=== PATIENT | female | born 1985 | race Caucasian/White ===

== ENCOUNTER 2018-04-26 22:01 | Inpatient (IN) | payer OTHER ==
[2018-04-26 23:32] LABS: PLATELET COUNT 269 10^3/uL (150-400)
[2018-04-27] MEDS ORDERED: fentaNYL 100 MCG/2 ML INJ ONE ×3 (00:09→07:19)
[2018-04-27] MEDS ORDERED: MISOPROSTOL 200 MCG TAB PR PRN (00:14)
[2018-04-27] MEDS ORDERED: LIDOCAINE 1% 300 MG/30 ML SDV SC PRN (00:14)
[2018-04-27] MEDS ORDERED: IBUPROFEN 600 MG TAB PO PRN (00:14)
[2018-04-27] MEDS ORDERED: LR 1,000 ML IV PRN (00:14)
[2018-04-27] MEDS ORDERED: OXYTOCIN/RINGERS LACTATE 1,000 ML IV PRN (00:14)
[2018-04-27] MEDS ORDERED: EPSOM SALT 454 GM TP PRN (00:14)
[2018-04-27] MEDS ORDERED: OLIVE OIL 118 ML BTL MISC PRN (00:14)
[2018-04-27] MEDS ORDERED: fentaNYL 100 MCG/2 ML INJ IVP ONE (00:15)
--- NOTE | 2018-04-27 00:59 | GHP ---
[f rep st] PREOP HISTORY AND PHYSICAL DATE OF ADMISSION: 04/26/2018 HISTORY UPON PRESENTATION: The patient is a 32-year-old, G1, P0, at 39+ weeks' gestation with an est imated due date of 04/29, who presents with spontaneous onset of labor with contractions throughout t he day on 04/26 and increasing in intensity and frequency after 8 p.m. upon arrival at approximately 10 p.m., the patient's cervix was checked and it was minimally changed from the office visit on 04/11 5. Cervix was 2 cm dilated at 80% effaced. The patient is actively abigail with increasing inte nsity with contractions every 2-3 minutes. Recent cervical exam has shown the patient has now dilate d to 4 cm at 100% effaced and 0 station. The patient is now being admitted for management of labor. The patient also has signs on admission concerning for preeclampsia without severe features. The pa milagros's blood pressures have consistently been running in the high 130s to 140s over 80s to 90s. The patient had PIH labs drawn which show normal platelets, liver functions and creatinine. However, P to C ratio is 0.68. The patient reports headache throughout the day on 04/26 and is currently having nausea at the time of contractions. The patient reports right rib pain. However, this has been con sistent through the end of where the baby is constantly putting pressure. COURSE: The patient has been followed with [facility] since 8 weeks gestation. T he patient had an early 1st trimester ultrasound that established a due date of 04/29. It showed siz e less than dates expected by last menstrual period by greater than 7 days. 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 The patient had an initial ultrasound at 20 weeks showing normal anatomy with an estim ated weight of 77th percentile. The patient was measuring size greater than dates at 27 weeks and a followup ultrasound was performed that showed estimated weight now at the 90th percentile with the BPD greater than 98th percentile. Also at that time the LUIS showed polyhydramnios at a level of 29 cm. A followup ultrasound was done and the LUIS decreased to 17 cm, and the growth now at 80th per centile. The patient has been bothered by increased snoring and symptoms consist consistent with sle ep apnea, but was unable to get an appointment at a sleep institute and has not been formally diagnos ed. The patient also broke her foot in the 35th week and has been wearing a boot. 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 LABS: Include maternal blood type A positive with negative antibody screen. RPR nonreactiv e. Rubella immune. Hepatitis B surface antigen negative. HIV negative. The standard panel was all negative other than the Gaucher's disease trait. The patient negative for cystic fibrosis, SMA, fra gile X. Urine drug screen was negative. Urinalysis and culture were negative. Verifi testing was n ormal and MSAFP was negative. 1-hour Glucola was normal, and hematocrit and platelets were normal at 28 weeks. GBS culture is negative. Varicella testing was immune. PAST MEDICAL HISTORY: The patient was evaluated at the age of 18 and had an elevated ABIMAEL, but furthe r workup was negative. PAST SURGICAL HISTORY: Only odontectomy. ALLERGIES: The patient has no known drug allergies. CURRENT MEDICATIONS: Only vitamins. SOCIAL HISTORY: The patient is a nonsmoker. No alcohol or drug use, but reports marijuana use in [facility]. The patient lives with her and works as an oncology nurse. FAMILY HISTORY: Noncontributory. PHYSICAL EXAMINATION: GENERAL APPEARANCE: Upon admission, the patient is a well-developed, well-nou rished white female in distress with contractions and having concentrated back pain. VITAL SIGNS: B lood pressures ranging from the 130s to 150s over 80s to low 100s. The patient is afebrile. See [facility] documentation for full details. LUNGS: Clear to auscultation bilaterally. CARDIOVASCULAR: Re gular rate and rhythm. Abdomen is gravid. heart tones show a category 1 reactive pattern with a baseline in the 130s with good accelerations and good variability. Contractions every 2 minutes. PELVIC: Exam as noted above. 4 cm dilated, 100% effaced at 0 station. Bag of water intact. EXTRE MITIES: Nontender and no edema. LABORATORY DATA: [place] [address], hemoglobin and hematocrit 13 and 40, platel et count 269,000. PIH labs reveal normal liver function tests. Creatinine 0.7, and P to C ratio of 0.68. ASSESSMENT: Intrauterine at 39+ weeks, in early active labor. The patient requesting pain relief, but not wanting an epidural at this time. Nitrous currently not available due to hospital e quipment supply. The patient is given IV fentanyl and will try to manage contractions in the tub. T he patient currently with elevated blood pressures and elevated P to C ratio diagnosing her with pree clampsia without severe features. We will continue close observation. GBS culture is negative. PLAN: Will expect progress and anticipate vaginal delivery. Will watch closely for severe signs wit h preeclampsia. Epidural if the patient desires. /[id number]/MODL
[2018-04-27] MEDS ORDERED: AMMONIA AROMATIC 1 EACH AMP IH ONE (01:16)
[2018-04-27] MEDS ORDERED: TERBUTALINE SULFATE 1 MG/ML VIAL ONE (01:16)
[2018-04-27] MEDS ORDERED: OLIVE OIL 118 ML BTL MISC ONE (01:16)
[2018-04-27] MEDS ORDERED: LIDOCAINE 1% 300 MG/30 ML SDV ONE (01:16)
[2018-04-27] MEDS ORDERED: MISOPROSTOL 200 MCG TAB ONE (01:17)
[2018-04-27] MEDS ORDERED: OXYTOCIN 10 UNIT/ML VIAL ONE (01:17)
[2018-04-27] MEDS ORDERED: BUPIVACAINE 0.25% 10 ML SDV ONE ×3 (02:53→07:18)
[2018-04-27] MEDS ORDERED: PHENYLEPHRINE HCL 100 MCG/ML SYR ONE (02:54)
[2018-04-27] MEDS ORDERED: fentaNYL 200 MCG, BUPIVACAINE 0.5% 20 ML in NS 100 ML EP SCH (03:00)
--- NOTE | 2018-04-27 03:31 | PDANEPAE ---
ANE History of Present Illness Labor for epidural, term ANE Past Medical History - Cardiovascular History Hx Hypertension: No Hx Arrhythmias: No - Pulmonary History Hx Asthma/Reactive Airway Disease: No Hx Sleep Apnea: No - Endocrine History Hx Diabetes: No - Chronic Pain History Chronic Pain: No ANE Review of Systems Review of Systems: ANE Patient History - Allergies Allergies/Adverse Reactions: No Known Allergies Allergy (Unverified 04/26/18 22:52) - Anes Hx Anes Hx: no prior problems (No prior RA) - Smoking Hx Smoking Status: Never smoked ANE Labs/Vital Signs - Labs Result Diagrams: 04/26/18 23:00 04/26/18 23:00 - Vital Signs Height: 165.1 cm Weight: 92.079 kg ANE Physical Exam - Airway Neck exam: FROM Mallampati Score: Class 2 Mouth exam: normal dental/mouth exam - Pulmonary Pulmonary: no respiratory distress - Cardiovascular Cardiovascular: regular rate and rhythym - ASA Status ASA Status: II ANE Anesthesia Plan Anesthesia Plan: epidural
[2018-04-27] MEDS ORDERED: fentaNYL 2MCG/ML/BUP 0.1% RTU 100 ML EP SCH (04:00)
[2018-04-27] MEDS ORDERED: LR 500 ML IV SCH (04:00)
[2018-04-27] MEDS ORDERED: LR 500 ML IV PRN ×2 (05:07→11:21)
--- NOTE | 2018-04-27 05:20 | OBPROG ---
Labor Progress Note Assessment/Plan: Assessment: IUP at 39 wks SOOC, active labor GBS - Plan: EDGARD approx 3 am, some lates with positioning and lower b/p, cx now 7/100/0 04/27/18 05:16 Subjective/Intrapartum Course: 04/27/18 05:17 pt sleeping soundly with EDGARD - comfortable Objective: 04/26/18 23:00 04/26/18 23:00 Patient ABO/Rh A POSITIVE 04/27/18 00:20 Uric Acid 6.6 mg/dL (2.5-6.8) 04/26/18 23:00 Total Bilirubin 0.2 mg/dL (0.1-1.4) 04/26/18 23:00 Conjugated Bilirubin 0.2 mg/dL (0.0-0.5) 04/26/18 23:00 Unconjugated Bilirubin 0.0 mg/dL (0.0-1.1) 04/26/18 23:00 AST 26 IU/L (14-46) 04/26/18 23:00 ALT 34 IU/L (9-52) 04/26/18 23:00 Lactate Dehydrogenase 523 IU/L (313-618) 04/26/18 23:00 - SVE Dilation (cm): 7 Effacement (%): 100 Station: 0 Membranes: Intact - Contraction Pattern Assessment Current Contraction Pattern: Irregular (harder to assess - q 4-6 min) - FHR Assessment Lopez FHR (bpm): 140 FHR Pattern Variability: Moderate FHR Category: 2 (since EDGARD occas lates with positioning and lower b/p) Oxytocin Orders Assessment - Pre-Induction/Augmentation Assessment Gestational Age: 39 week(s) and 4 day(s) ICD10 Worksheet Patient Problems: Problems Problem Status Onset Normal labor Acute Pre-eclampsia, mild Acute
[2018-04-27] MEDS ORDERED: OXYTOCIN/RINGERS LACTATE 500 ML IV SCH ×2 (05:30→11:30)
[2018-04-27] MEDS ORDERED: FAMOTIDINE 20 MG/NACL 50 ML IV ONE (08:07)
--- NOTE | 2018-04-27 09:03 | OBPROG ---
Labor Progress Note Assessment/Plan: Assumed care from Dr. Fields at 0700. Assessment: 32 G1 at 39w5d, in active labor. Now s/p epidural replacement - effective now. Stalled with regards to cervical dilation after epidural. Plan: AROM performed, meconium noted. MIXER ATTENDANT will be notified to attend . If no cervical change at next check, will augment with pitocin. Reviewed wishes and expectations around time of . Danelle Abraham MD, FACOG 04/27/18 08:57 Subjective/Intrapartum Course: 04/27/18 05:17 pt sleeping soundly with EDGARD - comfortable 04/27/18 09:03 Just had EDGARD replaced - is not quite comfortable again. Can feel contractions but not painful. Objective: 04/26/18 23:00 04/26/18 23:00 Patient ABO/Rh A POSITIVE 04/27/18 00:20 Uric Acid 6.6 mg/dL (2.5-6.8) 04/26/18 23:00 Total Bilirubin 0.2 mg/dL (0.1-1.4) 04/26/18 23:00 Conjugated Bilirubin 0.2 mg/dL (0.0-0.5) 04/26/18 23:00 Unconjugated Bilirubin 0.0 mg/dL (0.0-1.1) 04/26/18 23:00 AST 26 IU/L (14-46) 04/26/18 23:00 ALT 34 IU/L (9-52) 04/26/18 23:00 Lactate Dehydrogenase 523 IU/L (313-618) 04/26/18 23:00 gen - pleasant, NAD, sitting in high fowlers - SVE Dilation (cm): 7 Effacement (%): 100 Station: 0 Membranes: AROM (at 0840), Intact Amniotic Fluid Color: Meconium Stained - Contraction Pattern Assessment Current Contraction Pattern: Regular, Irregular (harder to assess - q 4-6 min) - FHR Assessment Lopez FHR (bpm): 145 (had a few late appearing decels which resolved after AROM) FHR Pattern Variability: Moderate FHR Category: 2 - Procedures Non-surgical Procedures: Amniotomy Oxytocin Orders Assessment - Pre-Induction/Augmentation Assessment Gestational Age: 39 week(s) and 4 day(s) ICD10 Worksheet Patient Problems: Problems Problem Status Onset Normal labor Acute Pre-eclampsia, mild Acute
--- NOTE | 2018-04-27 11:02 | OBPROG ---
Labor Progress Note Assessment/Plan: Assumed care from Dr. Fields at 0700. Assessment: 32 G1 at 39w5d, in active labor. Now s/p epidural replacement - effective now. Stalled with regards to cervical dilation after epidural. Plan: AROM performed, meconium noted. TRAVELING PLANT OPERATOR will be notified to attend . If no cervical change at next check, will augment with pitocin. Reviewed wishes and expectations around time of . Danelle Abraham MD, FACOG 04/27/18 08:57 A/P: 32 G1 at 39w5d, labor, slow progress - only 1 cm change since AROM 2 hours ago. Will start pitocin augmentation. B/R/A of pitocin discussed. EFW 8 lb. Cephalic on vaginal exam. Toe ring on R 2nd toe - will call ED to cut off, as entire foot (fractured 2 wk ago) is more edematous. Danelle Abraham MD, FACOG 04/27/18 10:59 Subjective/Intrapartum Course: 04/27/18 05:17 pt sleeping soundly with EDGARD - comfortable 04/27/18 09:03 Just had EDGARD replaced - is not quite comfortable again. Can feel contractions but not painful. 04/27/18 11:02 Comfortable, still feeling contractions but not painful. 04/27/18 11:03 Objective: 04/26/18 23:00 04/26/18 23:00 Patient ABO/Rh A POSITIVE 04/27/18 00:20 Uric Acid 6.6 mg/dL (2.5-6.8) 04/26/18 23:00 Total Bilirubin 0.2 mg/dL (0.1-1.4) 04/26/18 23:00 Conjugated Bilirubin 0.2 mg/dL (0.0-0.5) 04/26/18 23:00 Unconjugated Bilirubin 0.0 mg/dL (0.0-1.1) 04/26/18 23:00 AST 26 IU/L (14-46) 04/26/18 23:00 ALT 34 IU/L (9-52) 04/26/18 23:00 Lactate Dehydrogenase 523 IU/L (313-618) 04/26/18 23:00 gen -pleasant, NAD SVE - 8 / 100/ 0 cervix only present on maternal right. R foot - with brandon wrap now, edematous, and toe ring on R 2nd toe - unable to be removed due to edema. - SVE Dilation (cm): 8 Effacement (%): 100 Station: 0 Membranes: AROM (at 0840), Intact Amniotic Fluid Color: Meconium Stained - Contraction Pattern Assessment Current Contraction Pattern: Regular, Irregular (harder to assess - q 4-6 min) - Procedures Non-surgical Procedures: Amniotomy Oxytocin Orders Assessment - Pre-Induction/Augmentation Assessment Gestational Age: 39 week(s) and 4 day(s) ICD10 Worksheet Patient Problems: Problems Problem Status Onset Normal labor Acute Pre-eclampsia, mild Acute
--- NOTE | 2018-04-27 13:15 | OBPROG ---
Labor Progress Note Assessment/Plan: Assumed care from Dr. Fields at 0700. Assessment: 32 G1 at 39w5d, in active labor, with preeclampsia without severe features. Now s/p epidural replacement - effective now. Stalled with regards to cervical dilation after epidural. Plan: AROM performed, meconium noted. HIGH PRESSURE CLEANER will be notified to attend . If no cervical change at next check, will augment with pitocin. Reviewed wishes and expectations around time of . Danelle Abraham MD, FACOG 04/27/18 08:57 A/P: 32 G1 at 39w5d, labor, preeclampsia, slow progress - only 1 cm change since AROM 2 hours ago. Will start pitocin augmentation. B/R/A of pitocin discussed. EFW 8 lb. Cephalic on vaginal exam. Toe ring on R 2nd toe - will call ED to cut off, as entire foot (fractured 2 wk ago) is more edematous. Danelle Abraham MD, FACOG 04/27/18 10:59 A/p: Complete dilation, feels urge to push. Will begin soon. Anticipate vag delivery. Gunjan Abraham MD 04/27/18 13:12 Subjective/Intrapartum Course: 04/27/18 05:17 pt sleeping soundly with EDGARD - comfortable 04/27/18 09:03 Just had EDGARD replaced - is not quite comfortable again. Can feel contractions but not painful. 04/27/18 11:02 Comfortable, still feeling contractions but not painful. 04/27/18 11:03 Pt feeling lots of pressure and urge to push. 04/27/18 13:15 Objective: 04/26/18 23:00 04/26/18 23:00 Patient ABO/Rh A POSITIVE 04/27/18 00:20 Uric Acid 6.6 mg/dL (2.5-6.8) 04/26/18 23:00 Total Bilirubin 0.2 mg/dL (0.1-1.4) 04/26/18 23:00 Conjugated Bilirubin 0.2 mg/dL (0.0-0.5) 04/26/18 23:00 Unconjugated Bilirubin 0.0 mg/dL (0.0-1.1) 04/26/18 23:00 AST 26 IU/L (14-46) 04/26/18 23:00 ALT 34 IU/L (9-52) 04/26/18 23:00 Lactate Dehydrogenase 523 IU/L (313-618) 04/26/18 23:00 gen - pleasant, NAD - SVE Dilation (cm): 10 Effacement (%): 100 Station: +2 Membranes: AROM (at 0840), Intact Amniotic Fluid Color: Meconium Stained Dilation Complete Date: 04/27/18 Dilation Complete Time: 13:07 - Contraction Pattern Assessment Current Contraction Pattern: Regular, Irregular (harder to assess - q 4-6 min) - FHR Assessment Lopez FHR (bpm): 150 (some early and variable decels, on prolonged to 100 bpm x 90 sec ) FHR Pattern Variability: Moderate FHR Category: 2 - Procedures Non-surgical Procedures: Amniotomy Oxytocin Orders Assessment - Pre-Induction/Augmentation Assessment Gestational Age: 39 week(s) and 4 day(s) ICD10 Worksheet Patient Problems: Problems Problem Status Onset Normal labor Acute Pre-eclampsia, mild Acute
--- NOTE | 2018-04-27 15:57 | OBDEL ---
Info Type: Vaginal Presentation at Delivery: Vertex L&D Analgesia/Anesthesia Type: Epidural GBS+: No Intrapartum Medications: Generic Name Dose Route Start Last Admin Trade Name Freq PRN Reason Stop Dose Admin Lactated Ringer's 1,000 mls @ 0 mls/hr 04/27/18 00:14 04/27/18 11:24 Lr IV 04/28/18 00:13 1,000 mls PRN PRN Administration SEE PROTOCOL CONDITIONS Protocol Per Protocol Fentanyl 200 mcg/ Bupivacaine 100 mls @ 0 mls/hr 04/27/18 03:00 04/27/18 11: 42 HCl 20 ml/ Sodium Chloride EP 05/07/18 02:59 100 mls CONT RYAN Administration Protocol As Directed Oxytocin/Lactated Ringer's 500 mls @ 0 mls/hr 04/27/18 05:30 04/27/18 11:23 Pitocin 30 Units/Lr (Premix) IV 10/24/18 05:29 500 mls CONT RYAN Administration Protocol Per Protocol Discontinued Medications Generic Name Dose Route Start Last Admin Trade Name Freq PRN Reason Stop Dose Admin Fentanyl 75 mcg 04/27/18 00:15 04/27/18 00:11 Sublimaze IVP 04/27/18 00:16 75 mcg ONCE ONE Administration Famotidine/Sodium Chloride 50 mls @ 200 mls/hr 04/27/18 08:07 04/27/18 08:20 Pepcid 20 Mg (Premix) IV 04/27/18 08:21 50 mls ONCE ONE Administration - Infant Care Provider Fabricator [employer] Furn[employer]/METHANE GAS COLLECTION SYSTEM OPERATOR: Rochelle Lacy-[facility] - Hospital Course Intrapartum: 04/27/18 05:17 pt sleeping soundly with EDGARD - comfortable 04/27/18 09:03 Just had EDGARD replaced - is not quite comfortable again. Can feel contractions but not painful. 04/27/18 11:02 Comfortable, still feeling contractions but not painful. 04/27/18 11:03 Pt feeling lots of pressure and urge to push. 04/27/18 13:15 Indications for Delivery: Spontaneous Labor Vaginal Delivery - Delivery Provider Delivery Physician/CNM: Danelle Abraham - Labor and Delivery Onset of Contractions Date: 04/26/18 Onset of Contractions Time: 06:00 Onset of Contractions Type: Spontaneous Rupture of Membranes Date: 04/27/18 Rupture of Membranes Time: 08:41 Rupture of Membranes Type: Artificial Amniotic Fluid Color: Meconium Stained Dilation Complete Date: 04/27/18 Dilation Complete Time: 13:07 Placenta Delivery Date: 04/27/18 Placenta Delivery Time: 15:21 Total Hours of Labor: 33 Non-surgical Procedures: Amniotomy Laceration: 2nd Degree, Other (Specify) (left sulcus) Repair: 3-0, Vicryl Vaginal Sponge Count Correct: Yes Vaginal Needle Count Correct: Yes EBL: 400 Delivery Events: Nuchal Cord Delivery Comment: Pt progressed to 7cm without intervention. Epidural was placed per pt request, and later had to be replaced around 0700. AROM was performed at 0841- meconium stained fluid noted. Minimal progress after this, so pitocin augmentation was started around 1050. She progressed to complete at 1307 and began pushing at 1317. Delivery of vertex at 1514 over intact perineum, bulb suctioned on perineum, ORQUIDEA. One nuchal cord was reduced. With gentle traction, easy delivery of body to maternal abdomen. 1 min delay until cord was clamped and cut. Cord blood was obtained, as was a cord segment which was later discarded. METHANE GAS COLLECTION SYSTEM OPERATOR in attendance. Placenta delivered spontaneously at 1521 and appeared intact with a succenturiate lobe with vessels traveling through the membranes between the lobes. IV pitocin administered. 2nd degree and left sulcus lacerations identified and repaired with 3.0 Vicryl. Superficial bilateral periurethral lacerations were hemostatic so no repair was indicated. Vaginal sweep and fundal massage performed. Sponge and needle counts correct x 2. Pt and baby left in room stable with RN. Gunjan Abraham MD - Medications Labor Augmentation/Induction Methods Used: Pitocin (arrest of dilation) Labor Augmentation/Induction Indication: Inadequate Contraction Strength [place] Data TRINA: 04/29/18 Gestational Age: 39 week(s) and 5 day(s) Lopez Delivery Date: 04/27/18 ("Inocencio or Luke") Delivery Time: 15:14 Sex of Infant: Male Score (1 Min): 8 Score (5 Min): 9 ICD10 Worksheet Patient Problems: Problems Problem Status Onset Normal labor Acute Pre-eclampsia, mild Acute Spontaneous with laceration of vagina Acute - ICD10 Problem Qualifiers (1) Spontaneous with laceration of vagina
[2018-04-27] MEDS ORDERED: SIMETHICONE 80 MG TAB CHEW PO PRN (16:10)
[2018-04-27] MEDS ORDERED: DOCUSATE SODIUM 100 MG CAP PO PRN (16:10)
[2018-04-27] MEDS ORDERED: HYDROCORTISONE 0.5% CREAM TP PRN (16:10)
[2018-04-27] MEDS: ACETAMINOPHEN 325 MG TAB PO PRN (19:59)
[2018-04-28] MEDS: IBUPROFEN 600 MG TAB PO PRN ×3 (00:02→12:31)
[2018-04-28] MEDS: ACETAMINOPHEN 325 MG TAB PO PRN ×2 (06:00→12:32)
[2018-04-28 10:07] VITALS: BP 109/75
--- NOTE | 2018-04-28 12:17 | OBPP ---
Progress Note Assessment/Plan: Assessment: 32 y/o G1 now P1 at 39+ weeks s/p PPD #1 - pt is stable Anemia - pt is asymptomatic Plan: Continue routine pp care Will start iron BID and colace Plan for d/c home if baby gets discharged Instructions reviewed with pt No Rx given Cont PNV, iron and colace Pelvis rest RTC in 4 week and 6 weeks for pp visit 04/28/18 12:15 Subjective/ Course: 04/28/18 12:17 Pt seen and examined. Doing well, but is sore from tears below. Relief with Motrin and Tylenol. Mild cramping noted. Mod lochia. Pt is OOB, jessica regular diet , voiding and passing flatus. No BM yet. BF is going well. Pt would like to go home today. Objective: 04/28/18 06:20 04/26/18 23:00 Patient ABO/Rh A POSITIVE 04/27/18 00:20 Uric Acid 6.6 mg/dL (2.5-6.8) 04/26/18 23:00 Total Bilirubin 0.2 mg/dL (0.1-1.4) 04/26/18 23:00 Conjugated Bilirubin 0.2 mg/dL (0.0-0.5) 04/26/18 23:00 Unconjugated Bilirubin 0.0 mg/dL (0.0-1.1) 04/26/18 23:00 AST 26 IU/L (14-46) 04/26/18 23:00 ALT 34 IU/L (9-52) 04/26/18 23:00 Lactate Dehydrogenase 523 IU/L (313-618) 04/26/18 23:00 Temp Pulse Resp BP Pulse Ox 36.2 C 97 20 109/75 98 04/28/18 08:24 04/28/18 08:24 04/28/18 08:24 04/28/18 10:03 04/28/18 08:24 Uterine Position/Fundal Height: Umbilicus -2 Uterine Tone: Firm Physical Exam - Physical Exam General Appearance: WD/WN, alert, no apparent distress Respiratory: lungs clear, normal breath sounds Cardiac/Chest: regular rate, rhythm Abdomen: normal bowel sounds, non-tender, soft, flatus (+) Extremities: non-tender, normal inspection Skin: normal color, warm/dry Neuro/Psych: alert, normal mood/affect, oriented x 3
--- NOTE | 2018-04-28 12:20 | OBGCSDC ---
General Delivery Information - General Info : 1 Para: 1 Abortions: 0 Type: Vaginal L&D Analgesia/Anesthesia Type: Epidural Admission Date: 04/27/18 Labs: Patient ABO/Rh A POSITIVE 04/27/18 00:20 Hct 34.7 % (38.0-47.0) L 04/28/18 06:20 - Hospital Course Intrapartum: 04/27/18 05:17 pt sleeping soundly with EDGARD - comfortable 04/27/18 09:03 Just had EDGARD replaced - is not quite comfortable again. Can feel contractions but not painful. 04/27/18 11:02 Comfortable, still feeling contractions but not painful. 04/27/18 11:03 Pt feeling lots of pressure and urge to push. 04/27/18 13:15 : 04/28/18 12:17 Pt seen and examined. Doing well, but is sore from tears below. Relief with Motrin and Tylenol. Mild cramping noted. Mod lochia. Pt is OOB, jessica regular diet , voiding and passing flatus. No BM yet. BF is going well. Pt would like to go home today. Vaginal - Delivery Provider Delivery Physician/CNM: Danelle Abraham - Diagnosis Labor: Spontaneous Rupture of Membranes Type: Artificial Amniotic Fluid Color: Meconium Stained Laceration: 2nd Degree, Other (Specify) (left sulcus) Repair: 3-0, Vicryl Delivery Events: Nuchal Cord - Procedures Non-surgical Procedures: Amniotomy - Delivery Non-surgical Procedures: Amniotomy EBL: 400 Data TRINA: 04/29/18 Gestational Age: 39 week(s) and 6 day(s) Lopez Delivery Date: 04/27/18 Delivery Time: 15:14 Sex of Infant: Male Weight (gm): 3196 g Score (1 Min): 8 Score (5 Min): 9 Discharge Information - Discharge Information Condition: Good Instruction/Follow Up: Four Weeks, Six Weeks
[2018-04-28] MEDS ORDERED: FERRO-SEQUELS 65 MG TAB.ER PO SCH (12:30)
== END 2018-04-28 17:24 | disposition home or self-care (01) | DRG 807 ==
LOC: FLD 22:01 → OBSVTOIN 04-27 17:43 → FOB 04-27 18:59
PROVIDERS: ADMIT Obstetrics & Gynecology; ATTEND Obstetrics & Gynecology
PROC: 10E0XZZ Delivery of Products of Conception, External Approach (ICD-10-PCS; principal; 2018-04-27)
PROC: 0KQM0ZZ Repair Perineum Muscle, Open Approach (ICD-10-PCS; principal; 2018-04-27)
DX: O77.0 Labor and delivery complicated by meconium in amniotic fluid (principal); O14.04 Mild to moderate pre-eclampsia, complicating childbirth; O70.1 Second degree perineal laceration during delivery; S92.901D Unspecified fracture of right foot, subsequent encounter for fracture with routine healing; O9A.22 Injury, poisoning and certain other consequences of external causes complicating childbirth; Z3A.39 39 weeks gestation of pregnancy; Z37.0 Single live birth; X58.XXXD Exposure to other specified factors, subsequent encounter; Y99.9 Unspecified external cause status
CPT/HCPCS: J2370; J2590; J3010; J3105